=== PATIENT | female | born 2000 | race Caucasian/White ===

== ENCOUNTER 2022-01-01 19:51 | Emergency (ER) | payer BC ==
[~2022-01-01] VITALS: Ht 170.2 cm; Wt 99.8 kg
--- NOTE | 2022-01-01 21:10 | NUR ---
BIBS FOR C/O SORE THROAT, FEVER, CHILLS, H/A AND BODY ACHE X TODAY. AMBULATORY, PLACED ON BED.
--- NOTE | 2022-01-01 21:51 | NUR ---
SWAB FOR RAPID STREP SENT TO LAB
[2022-01-01] MEDS ORDERED: AMOXICILLIN TRIHYDRATE 250 MG CAPSULE ONE (21:56)
[2022-01-01] MEDS ORDERED: AMOX500C2 PO (21:56)
[2022-01-01] MEDS ORDERED: DEXAMETHASONE SOLN 5 MG/5 ML UDC ONE (21:56)
[2022-01-01] MEDS ORDERED: IBUP-1955 PO (21:56)
[2022-01-01] MEDS ORDERED: IBUPROFEN 600 MG TABLET ONE (21:56)
[2022-01-01] MEDS: IBUPROFEN 600 MG TABLET PO ONE (22:02)
[2022-01-01] MEDS: AMOXICILLIN TRIHYDRATE 500 MG CAPSULE PO ONE (22:02)
[2022-01-01] MEDS: DEXAMETHASONE SOLN 0.5 MG/5 ML UDC PO ONE (22:04)
--- NOTE | 2022-01-01 22:27 | NUR ---
Patient discharged to home in stable condition. Written and verbal after care instructions given. Patient verbalizes understanding of instruction.
[2022-01-01 22:28] VITALS: BP 118/78
== END 2022-01-01 22:27 | disposition home or self-care (01) ==
LOC: ER 19:57
DX: J02.0 Streptococcal pharyngitis (principal); R50.9 Fever, unspecified; Z79.899 Other long term (current) drug therapy
CPT/HCPCS: 99284; 87070; 87880; J8540; 86403-TC